=== PATIENT | male | born 1960 | race Caucasian/White ===

== ENCOUNTER → 2016-10-25 | Outpatient (CLI) | payer BC | LOC: M OUTALCOH 07:31 | PROVIDERS: ATTEND Psychiatry & Neurology Psychiatry | DX: F10.20 Alcohol dependence, uncomplicated (principal); F11.20 Opioid dependence, uncomplicated ==

== ENCOUNTER 2016-11-07 15:00 | Outpatient (RCR) | payer BC | END 2016-11-10 | LOC: M OUTALCOH 15:00 | PROVIDERS: ATTEND Psychiatry & Neurology Psychiatry | DX: F10.20 Alcohol dependence, uncomplicated (principal); F11.20 Opioid dependence, uncomplicated ==

== ENCOUNTER → 2016-12-11 | Outpatient (RCR) | payer BC | LOC: M OUTALCOH 11-12 09:00 | PROVIDERS: ATTEND Psychiatry & Neurology Psychiatry | DX: F10.20 Alcohol dependence, uncomplicated (principal); F11.20 Opioid dependence, uncomplicated ==

== ENCOUNTER 2017-01-08 16:00 | Outpatient (RCR) | payer BC | END 2017-01-10 | LOC: M OUTALCOH 16:00 | PROVIDERS: ATTEND Psychiatry & Neurology Psychiatry | DX: F10.20 Alcohol dependence, uncomplicated (principal); F11.20 Opioid dependence, uncomplicated ==

== ENCOUNTER → 2017-02-10 | Outpatient (RCR) | payer BC | LOC: M OUTALCOH 01-15 16:00 | PROVIDERS: ATTEND Psychiatry & Neurology Psychiatry | DX: F10.20 Alcohol dependence, uncomplicated (principal); F11.20 Opioid dependence, uncomplicated ==

== ENCOUNTER → 2017-03-13 | Outpatient (RCR) | payer BC | LOC: M OUTALCOH 02-12 16:00 | PROVIDERS: ATTEND Psychiatry & Neurology Psychiatry | DX: F10.20 Alcohol dependence, uncomplicated (principal); F11.20 Opioid dependence, uncomplicated ==

== ENCOUNTER 2017-04-10 16:00 | Outpatient (RCR) | payer BC | END 2017-04-12 | LOC: M OUTALCOH 16:00 | PROVIDERS: ATTEND Psychiatry & Neurology Psychiatry | DX: F10.20 Alcohol dependence, uncomplicated (principal); F11.20 Opioid dependence, uncomplicated ==

== ENCOUNTER 2017-06-16 14:45 | Outpatient (RCR) | payer BC | END 2017-07-13 | LOC: M OUTALCOH 14:45 | DX: F10.20 Alcohol dependence, uncomplicated (principal); F11.20 Opioid dependence, uncomplicated ==

== ENCOUNTER 2017-07-16 11:11 | Outpatient (RCR) | payer BC | END 2017-08-13 | LOC: M OUTALCOH 11:11 | DX: F10.20 Alcohol dependence, uncomplicated (principal); F11.20 Opioid dependence, uncomplicated ==

== ENCOUNTER 2017-08-20 10:00 | Outpatient (RCR) | payer BC | END 2017-09-10 | LOC: M OUTALCOH 10:00 | DX: F10.20 Alcohol dependence, uncomplicated (principal); F11.20 Opioid dependence, uncomplicated ==

== ENCOUNTER 2017-09-17 10:26 | Outpatient (RCR) | payer BC | END 2017-10-11 | LOC: M OUTALCOH 10:26 | DX: F10.20 Alcohol dependence, uncomplicated (principal); F11.20 Opioid dependence, uncomplicated ==

== ENCOUNTER 2017-10-15 09:58 | Outpatient (RCR) | payer BC | END 2017-11-10 | LOC: M OUTALCOH 09:58 | DX: F10.20 Alcohol dependence, uncomplicated (principal); F11.20 Opioid dependence, uncomplicated ==

== ENCOUNTER 2017-11-18 10:00 | Outpatient (RCR) | payer BC | END 2017-12-11 | LOC: M OUTALCOH 10:00 | DX: F10.20 Alcohol dependence, uncomplicated (principal); F11.20 Opioid dependence, uncomplicated ==

== ENCOUNTER 2017-12-16 15:11 | Outpatient (RCR) | payer BC | END 2018-01-10 | LOC: M OUTALCOH 15:11 | DX: F10.20 Alcohol dependence, uncomplicated (principal); F11.20 Opioid dependence, uncomplicated ==

== ENCOUNTER → 2019-07-29 | Outpatient (REF) | payer BC | LOC: M LAB REF 09:29 | PROVIDERS: ATTEND Dermatology | DX: D23.5 Other benign neoplasm of skin of trunk (principal); L98.9 Disorder of the skin and subcutaneous tissue, unspecified ==

== ENCOUNTER → 2021-02-26 | Outpatient (CLI) | payer BC ==
--- NOTE | 2021-02-26 10:50 | REP ---
INDICATION: ANEMIA, FATIGUE,HYPOTHRYOID, HTN LAB AND EKG FIRST. COMPARISON: 04/17/2012 TECHNIQUE: PA and lateral FINDINGS: The superior mediastinal structures are midline. The cardiac silhouette is unremarkable in size, shape, and position. The diaphragmatic surfaces of the lungs are regular, and the costophrenic angles are clear. The pulmonary cervantes are clear. The imaged osseous structures are intact. IMPRESSION: There is no acute cardiopulmonary disease. <Electronically signed by Hany Ortega > 02/26/21 1043
[2021-02-26 11:18] LABS: HEMATOCRIT 39.5 % (42.0-52.0); MEAN CORPUSCULAR HEMOGLOBIN 32.8 pg (27.0-33.0); MEAN CORPUSCULAR HGB CONC 35.4 g/dl (32.0-36.5); MEAN CORPUSCULAR VOLUME 92.5 fl (80.0-96.0); PLATELET COUNT, AUTOMATED 249 10^3/uL (150-450); RED BLOOD COUNT 4.27 10^6/uL (4.30-6.10); WHITE BLOOD COUNT 7.4 10^3/uL (4.0-10.0)
[2021-02-26 11:39] LABS: ALBUMIN 3.9 GM/DL (3.2-5.2); ALT/SGPT 27 U/L (12-78); BILIRUBIN,TOTAL 0.6 MG/DL (0.2-1.0); BLOOD UREA NITROGEN 13 MG/DL (7-18); CALCIUM LEVEL 8.8 MG/DL (8.8-10.2); CARBON DIOXIDE LEVEL 31 MEQ/L (21-32); CHLORIDE LEVEL 106 MEQ/L (98-107); CHOLESTEROL LEVEL 133 MG/DL (<200); CHOLESTEROL RISK RATIO 2.254 (<5); GLOMERULAR FILTRATION RATE > 60.0 (>49); GLUCOSE, FASTING 109 MG/DL (70-100); HDL CHOLESTEROL 59 MG/DL (>40); LDL CHOLESTEROL 65 MG/DL (<100); NON-HDL-C 74 MG/DL; POTASSIUM SERUM 4.6 MEQ/L (3.5-5.1); PROSTATIC SPECIFIC AG MONITOR 0.11 NG/ML (< 4.00); SODIUM LEVEL 138 MEQ/L (136-145); TOTAL PROTEIN 6.7 GM/DL (6.4-8.2); TRIGLYCERIDES LEVEL 45 MG/DL (<150)
[2021-02-26 11:40] LABS: TOTAL 25(OH) VITAMIN D 44.2 NG/ML (30.0-100.0)
[2021-02-26 11:48] LABS: HEMOGLOBIN A1c 5.3 %
[2021-02-26 11:55] LABS: TESTOSTERONE 251 NG/DL (241-827)
--- NOTE | 2021-02-26 16:17 | ECGEPIP ---
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 No prior ECG available for comparison at the time of interpretation. Electronically Signed on 02-26-2021 16:17:31 EDT by Jonathon Larose
== END ==
LOC: M LAB 09:21
PROVIDERS: ATTEND Family Medicine
DX: E03.9 Hypothyroidism, unspecified (principal); E11.9 Type 2 diabetes mellitus without complications; D64.9 Anemia, unspecified; R53.83 Other fatigue

== ENCOUNTER → 2021-06-09 | Outpatient (CLI) | payer BC ==
[~2021-06-09] MED LIST: BUPR1FIL SL; METO1TAB7 PO; POTA1TAB23 PO; PROZ40CA PO; TEST200I14 IM; VITATAB74 PO; ZINC1TAB2 PO
== END ==
LOC: M LABSMTC 10:15
PROVIDERS: ATTEND Anesthesiology
DX: Z11.52 Encounter for screening for COVID-19 (principal); Z20.828 Contact with and (suspected) exposure to other viral communicable diseases

== ENCOUNTER → 2021-07-20 | Outpatient (CLI) | payer BC ==
[~2021-07-20] MED LIST changes: +VITMTA PO
== END ==
LOC: M LABSMTC 10:26
PROVIDERS: ATTEND Anesthesiology
DX: Z01.812 Encounter for preprocedural laboratory examination (principal); Z20.822 Contact with and (suspected) exposure to COVID-19

== ENCOUNTER → 2022-05-07 | Outpatient (CLI) | payer BC ==
[2022-05-07 09:52] LABS: HEMOGLOBIN 14.3 g/dl (13.5-17.5); MEAN CORPUSCULAR HEMOGLOBIN 32.5 pg (27.0-33.0); MEAN CORPUSCULAR HGB CONC 34.9 g/dl (32.0-36.5); MEAN CORPUSCULAR VOLUME 93.2 fl (80.0-96.0); PLATELET COUNT, AUTOMATED 237 10^3/uL (150-450); WHITE BLOOD COUNT 5.3 10^3/uL (4.0-10.0)
[2022-05-07 10:42] LABS: ALBUMIN 3.8 GM/DL (3.2-5.2); ALT/SGPT 30 U/L (12-78); BILIRUBIN,TOTAL 0.8 MG/DL (0.2-1.0); BLOOD UREA NITROGEN 15 MG/DL (7-18); CALCIUM LEVEL 8.9 MG/DL (8.8-10.2); CARBON DIOXIDE LEVEL 30 MEQ/L (21-32); CHLORIDE LEVEL 105 MEQ/L (98-107); CHOLESTEROL LEVEL 151 MG/DL (<200); CHOLESTEROL RISK RATIO 2.157 (<5); CREATININE FOR GFR 0.91 MG/DL (0.70-1.30); GLOMERULAR FILTRATION RATE > 60.0 (>49); GLUCOSE, FASTING 114 MG/DL (70-100); HDL CHOLESTEROL 70 MG/DL (>40); LDL CHOLESTEROL 68 MG/DL (<100); NON-HDL-C 81 MG/DL; POTASSIUM SERUM 4.7 MEQ/L (3.5-5.1); SODIUM LEVEL 138 MEQ/L (136-145); TRIGLYCERIDES LEVEL 64 MG/DL (<150)
[2022-05-07 11:09] LABS: TESTOSTERONE 151 NG/DL (241-827); TOTAL 25(OH) VITAMIN D 25.7 NG/ML (30.0-100.0)
== END ==
LOC: M LAB 08:05
PROVIDERS: ATTEND Family Medicine
DX: I10 Essential (primary) hypertension (principal); R53.83 Other fatigue; E03.9 Hypothyroidism, unspecified